=== PATIENT | female | born 1985 | race Caucasian/White ===

== ENCOUNTER 2016-08-18 11:17 | Outpatient (CLI) | payer SELFPAY ==
[2014-10-02 13:27] VITALS: BP 155/97
== END 2016-08-18 11:20 ==
LOC: LABRHC 11:17
PROVIDERS: ATTEND Physician Assistant
DX: Z12.4 Encounter for screening for malignant neoplasm of cervix (principal)
CPT/HCPCS: 88148; G0143

== ENCOUNTER 2016-12-08 11:33 | Outpatient (CLI) | payer SELFPAY ==
[2014-10-02 13:27] VITALS: BP 155/97
== END 2016-12-08 11:34 ==
LOC: LAB 11:33
PROVIDERS: ATTEND Family Medicine
DX: R07.9 Chest pain, unspecified (principal)
CPT/HCPCS: 36415; 85379

== ENCOUNTER 2016-12-10 00:19 | Emergency (ER) | payer SELFPAY ==
[2016-12-10] MEDS ORDERED: KETOROLAC TROMETHAMINE 60 MG/2 ML VIAL IM ONE (00:25)
[2016-12-10] MEDS ORDERED: PROMETHAZINE HCL 25 MG/ML VIAL IM ONE (00:25)
[2016-12-10] MEDS ORDERED: diphenhydrAMINE HCL 50 MG/ML VIAL IM ONE (00:25)
[2016-12-10 00:30] VITALS: BP 134/77
--- NOTE | 2016-12-10 00:34 | ED Physician Documentation ---
Headache - HISTORIAN Historian: patient, spouse - [facility] Chief Complaint: Headache Onset: hours (2) Timing: abrupt New Gradual Onset: No Exposure To: none Severity: severe Quality: similar to previous, pain, tightness, throbbing Associated Symptoms: sensitivity to light, nausea, dizziness. denies: problems with vision, vomiting, neck pain, stiffness, speech problems, weakness, trouble walking, tingling, numbness Exacerbated By: light, noise, movement Further Comments: yes (31 year old female patient brought in by with complaints of acute headache which started 2 hours ago. 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.) - ROS NEURO/PSYCH: denies: confusion, anxiety, depression, fainting, other EYES/ENT: denies: sore throat, difficulty swallowing, sinus pain, drainage, other CVS/RESP: none GI/: denies: abdominal pain, diarrhea, problems urinating, incontinence, other MS/SKIN/LYMPH: denies: muscle aches, back pain, rash, skin lesions, swollen glands, other all systems neg except as marked: Yes - PAST HX Medical History: other (bipolar, depression) Allergies/Adverse Reactions: Allergies Allergy/AdvReac Type Severity Reaction Status Date / Time No Known Allergies Allergy Verified 12/10/16 00:26 - SOCIAL HX Smoking History: cigarettes - Family HX Family History: none - VITAL SIGNS Vital Signs: Vital Signs Temp Pulse Resp BP Pulse Ox 155/97 10/02/14 14:37 - REVIEWED ASSESSMENTS Nursing Assessment Reviewed: Yes Vitals Reviewed: Yes Progress - Progress Progress: Medicated for migraine with toradol, benadryl and promethazine IM Reviewed discharge instructions with patient and . ED Results Lab/Radiology - Orders Orders: ED Orders Category Date Time Status Ketorolac Tromethamine [Toradol] Med 12/10/16 00:25 Once 60 mg IM NOW ONE Promethazine HCl [Phenergan] Med 12/10/16 00:25 Once 25 mg IM NOW ONE diphenhydrAMINE HCL [Benadryl] Med 12/10/16 00:25 Once 25 mg IM NOW ONE Headache Physical Exam - EXAM General Appearance: moderate distress EENT: no facial swelling, eyes nml inspection, PERRL, nml ENT, pharynx nml Respiratory: no resp distress, chest non-tender, breath sounds normal CVS: reg. rate & rhythm, heart sounds nml Abdomen: non-tender, no organomegaly, nml bowel sounds, no distention Skin: color nml, no rash, warm, nml palp., dry Extremitites: non-tender, normal range of motion, no evidence of injury, no edema, J, H[employer]ER - NEURO/PSYCH Higher Functions: alert, oriented x3, nml speech, mood/affect nml Cranial: no evidence of acute CVA Cerebellar: nml as tested Sensorimotor: motor nml, sensation nml Discharge Clincal Impression: Migraine Qualifiers: Migraine type: unspecified Status migrainosus presence: without status migrainosus Intractability: not intractable Qualified Code(s): G43.909 - Migraine, unspecified, not intractable, without status migrainosus Additional Instructions: Rest in cool, dark room Tomorrow start Tylenol every 4 hours as needed or ibuprofen 800mg every 6 hours as needed for headache Clear liquids and advance diet as tolerated. Condition: Stable Disposition: 01 HOME, SELF-CARE Decision to Admit: NO Decision Time: 12:50
== END 2016-12-10 00:55 | disposition home or self-care (01) ==
LOC: ED 00:19
DX: G43.909 Migraine, unspecified, not intractable, without status migrainosus (principal)
CPT/HCPCS: J1200; J1885; J2550; 96372; 99283

== ENCOUNTER 2017-02-06 18:31 | Emergency (ER) | payer SELFPAY ==
[2017-02-06] MEDS ORDERED: KETOROLAC TROMETHAMINE 60 MG/2 ML VIAL IM ONE (18:37)
[2017-02-06] MEDS ORDERED: PROMETHAZINE HCL 25 MG/ML VIAL IM ONE (18:37)
[2017-02-06] MEDS ORDERED: diphenhydrAMINE HCL 50 MG/ML VIAL IM ONE (18:37)
--- NOTE | 2017-02-06 18:40 | ED Physician Documentation ---
Headache - HISTORIAN Historian: patient - HPI Chief Complaint: Headache Onset: hours Timing: still present New Gradual Onset: No Exposure To: none Severity: severe Quality: similar to previous, pain Associated Symptoms: sensitivity to light, nausea, vomiting. denies: fever, chills, sweating, problems with vision Exacerbated By: light, noise, movement Further Comments: yes (31 year old female patient presents with complaints of migraine headache. Patient reports she was seen about 1 month ago with similar headache, "the shots really helped". Patient c/o nausea, photophobia and global headache.) - ROS NEURO/PSYCH: denies: confusion, anxiety, depression, fainting, other EYES/ENT: denies: sore throat, difficulty swallowing, sinus pain, drainage CVS/RESP: cough. denies: chest pain, shortness of breath GI/: denies: abdominal pain, diarrhea MS/SKIN/LYMPH: denies: muscle aches, back pain, skin lesions, swollen glands - PAST HX Medical History: migraines Allergies/Adverse Reactions: Allergies Allergy/AdvReac Type Severity Reaction Status Date / Time No Known Allergies Allergy Verified 02/06/17 18:42 Home Medications: Ambulatory Orders Medication Instructions Recorded Promethazine HCl [Phenergan] 25 mg PO Q6H PRN #30 tablet 02/06/17 - SOCIAL HX Smoking History: cigarettes - Family HX Family History: denies: none - VITAL SIGNS Vital Signs: Vital Signs Temp Pulse Resp BP Pulse Ox 98.2 F 91 H 16 134/97 100 02/06/17 18:38 02/06/17 18:38 02/06/17 18:38 02/06/17 18:38 02/06/17 18:38 - REVIEWED ASSESSMENTS Nursing Assessment Reviewed: Yes Vitals Reviewed: Yes Progress - Progress Progress: Old records reviewed. Patient medicated with toradol, promethazine and benadryl while in Er. ED Results Lab/Radiology - Orders Orders: ED Orders Category Date Time Status Ketorolac Tromethamine [Toradol] Med 02/06/17 18:37 Discontinued 60 mg IM NOW ONE Promethazine HCl [Phenergan] Med 02/06/17 18:37 Discontinued 25 mg IM NOW ONE diphenhydrAMINE HCL [Benadryl] Med 02/06/17 18:37 Discontinued 25 mg IM NOW ONE Headache Physical Exam - EXAM General Appearance: moderate distress (tearful) EENT: no facial swelling, eyes nml inspection, PERRL, nml ENT, pharynx nml Respiratory: no resp distress, chest non-tender, breath sounds normal CVS: reg. rate & rhythm, heart sounds nml Abdomen: non-tender, no organomegaly, nml bowel sounds, no distention Skin: color nml, no rash, warm, nml palp., dry Extremitites: non-tender, normal range of motion, no evidence of injury, no edema, J, [employer] - NEURO/PSYCH Higher Functions: alert, oriented x3, nml speech, mood/affect nml Cranial: nml as tested, no evidence of acute CVA Cerebellar: nml as tested, nml gait Sensorimotor: motor nml, sensation nml Discharge Clincal Impression: Migraine Qualifiers: Migraine type: without aura Status migrainosus presence: without status migrainosus Intractability: not intractable Qualified Code(s): G43.009 - Migraine without aura, not intractable, without status migrainosus Prescriptions: Promethazine HCl [Phenergan] 25 mg PO Q6H PRN #30 tablet PRN Reason: Nausea / Vomiting Referrals: Diane Clements FNP [Primary Care Provider] - 2 Days Additional Instructions: You may use Ibuprofen 4 tabs (800mg) every 6 hours as needed for headache with Benadryl 1-2 tabs every 6 hours and promethazine 1 tab every 6 hours as needed for nausea Follow up with your primary care provider if your headaches become more frequent. Condition: Stable Disposition: 01 HOME, SELF-CARE Decision to Admit: NO Decision Time: 18:45
[2017-02-06 19:20] VITALS: BP 126/74
== END 2017-02-06 19:18 | disposition home or self-care (01) ==
LOC: ED 18:31
DX: G43.009 Migraine without aura, not intractable, without status migrainosus (principal)
CPT/HCPCS: J1200; J1885; J2550; 96372; 99283

== ENCOUNTER 2017-04-13 02:31 | Emergency (ER) | payer SELFPAY ==
[2017-04-13] MEDS ORDERED: KETOROLAC TROMETHAMINE 60 MG/2 ML VIAL IM ONE (02:38)
[2017-04-13] MEDS ORDERED: diphenhydrAMINE HCL 50 MG/ML VIAL IM ONE (02:38)
[2017-04-13] MEDS ORDERED: PROMETHAZINE HCL 25 MG/ML VIAL IM ONE (02:38)
[2017-04-13 02:47] VITALS: BP 139/89
--- NOTE | 2017-04-13 02:52 | ED Physician Documentation ---
Headache - HISTORIAN Historian: patient - HPI Stated Complaint: HEAD Chief Complaint: Headache Onset: hours Timing: abrupt Exposure To: none Severity: severe Quality: similar to previous, pain Exacerbated By: light, noise, movement Further Comments: yes (31 year old female patient presents to ER with complaint of headache. Patient is well known to this provider. states "give me the same thing you did last time". Patient did not try OTC medication regimen recommended at last visit, did not fill promethazine.) - ROS NEURO/PSYCH: denies: confusion, anxiety, depression, fainting, other EYES/ENT: denies: sore throat, difficulty swallowing, sinus pain, drainage, other CVS/RESP: none GI/: denies: abdominal pain, diarrhea, problems urinating, incontinence, other MS/SKIN/LYMPH: denies: muscle aches, back pain, rash, skin lesions, swollen glands, other all systems neg except as marked: Yes - PAST HX Medical History: migraines Allergies/Adverse Reactions: Allergies Allergy/AdvReac Type Severity Reaction Status Date / Time No Known Allergies Allergy Verified 04/13/17 02:48 Home Medications: Ambulatory Orders Medication Instructions Recorded Promethazine HCl [Phenergan] 25 mg PO Q6H PRN #30 tablet 02/06/17 Promethazine HCl [Phenergan] 25 mg PO Q6H PRN #30 tablet 04/13/17 - SOCIAL HX Smoking History: cigarettes - Family HX Family History: denies: none - VITAL SIGNS Vital Signs: Vital Signs Temp Pulse Resp BP Pulse Ox 97.4 F L 85 18 139/89 98 04/13/17 02:31 04/13/17 02:31 04/13/17 02:31 04/13/17 02:31 04/13/17 02:31 - REVIEWED ASSESSMENTS Nursing Assessment Reviewed: Yes Vitals Reviewed: Yes Progress - Progress Progress: Patient states she took tylenol at home with no relief. Patient was instructed at last visit to use ibuprofen, promethazine and benadrly PO for migraines. Patient states "I don't have that stuff". Prescription sent for promethazine at last ER visit. Patient did not fill. ED Results Lab/Radiology - Orders Orders: ED Orders Category Date Time Status Ketorolac Tromethamine [Toradol] Med 04/13/17 02:38 Discontinued 60 mg IM NOW ONE Promethazine HCl [Phenergan] Med 04/13/17 02:38 Discontinued 25 mg IM NOW ONE diphenhydrAMINE HCL [Benadryl] Med 04/13/17 02:38 Discontinued 50 mg IM NOW ONE Headache Physical Exam - EXAM General Appearance: mild distress EENT: no facial swelling, eyes nml inspection, PERRL, nml ENT, pharynx nml Respiratory: no resp distress CVS: reg. rate & rhythm Skin: color nml, no rash, warm, nml palp., dry - NEURO/PSYCH Higher Functions: alert, oriented x3, nml speech, mood/affect nml Cranial: nml as tested, no evidence of acute CVA Sensorimotor: motor nml, sensation nml Discharge Clincal Impression: Migraine Qualifiers: Migraine type: without aura Status migrainosus presence: without status migrainosus Intractability: not intractable Qualified Code(s): G43.009 - Migraine without aura, not intractable, without status migrainosus Prescriptions: Promethazine HCl [Phenergan] 25 mg PO Q6H PRN #30 tablet PRN Reason: Nausea / Vomiting Referrals: Prabha Torrez MD [STAFF PHYSICIAN] - 2 Days Additional Instructions: No driving. At onset of migraine take: Ibuprofen 800mg - 4 tabs Benadryl 2 tabs Promethanzine 1 tab - prescription sent to pharmacy. Condition: Stable Disposition: 01 HOME, SELF-CARE Decision to Admit: NO Decision Time: 02:52
== END 2017-04-13 03:05 | disposition home or self-care (01) ==
LOC: ED 02:31 → SUPCPDRO 02:31 → ED 03:05
DX: G43.009 Migraine without aura, not intractable, without status migrainosus (principal)
CPT/HCPCS: 96372; 99282; J1200; J1885; J2550